=== PATIENT | male | born 1995 | race Caucasian/White ===

== ENCOUNTER 2020-01-23 22:22 | Emergency (ER) | payer SELFPAY ==
[~2020-01-23] VITALS: Ht 180.3 cm; Wt 113.6 kg
[2020-01-23 22:26] VITALS: Ht 180.3 cm; Wt 113.6 kg
[2020-01-23 23:02] LABS: BASOPHILS 0.4 % (0-2); EOSINOPHILS 0.2 % (0-7); HEMATOCRIT 46.7 % (42.0-54.0); HEMOGLOBIN 15.8 g/dL (13.5-17.5); IMMATURE GRANULOCYTES 0.2 % (0-5); LYMPHOCYTES 26.9 % (15-50); MCH 31.5 pg (26.0-34.0); MCHC 33.8 g/dL (31.0-37.0); MEAN PLATELET VOLUME 10.2 fL (7.4-10.4); MONOCYTES 8.6 % (2-11); NEUTROPHILS 63.7 % (40-80); PLATELET COUNT 278 10x3/uL (130-400); RBC 5.02 10x6/uL (4.20-6.10); RDW 12.1 % (11.5-14.5); WBC 11.3 10x3/uL (4.8-10.8)
[2020-01-23 23:08] LABS: BILIRUBIN NEGATIVE (NEGATIVE); GLUCOSE NEGATIVE (NEGATIVE); KETONE MODERATE mg/dL (NEGATIVE); NITRITE NEGATIVE (NEGATIVE); UROBILINOGEN NORMAL (NORMAL)
[2020-01-23 23:15] LABS: CALC OSMOLALITY 274 mosm/kg (275-300); CALCIUM 9.2 mg/dL (8.5-10.1); CARBON DIOXIDE 30.3 mmol/L (21.0-32.0); CHLORIDE - SERUM 102 mmol/L (98-107); CREATININE - SERUM 1.2 mg/dL (0.6-1.3); GLUCOSE 91 mg/dL (74-106); SODIUM 138 mmol/L (136-145); UREA NITROGEN 10 mg/dL (7-18); eGFR NON AFRICAN AMERICAN 80 mL/min (90-120)
[2020-01-23 23:23] LABS: ALBUMIN 4.7 g/dL (3.4-5.0); ALKALINE PHOSPHATASE 52 U/L (30-120); ALT (SGPT) 27 U/L (10-68); AMYLASE - SERUM 36 U/L (25-115); BILIRUBIN - TOTAL 0.79 mg/dL (0.2-1.3); LIPASE 74 U/L (73-393); PROTEIN - SERUM 7.8 g/dL (6.4-8.2)
[2020-01-23 23:25] LABS: TROPONIN-I < 0.017 ng/mL (0.000-0.060)
[2020-01-24] MEDS ORDERED: ZOFRAN ODT4 MG/UDTAB PO (00:12)
[2020-01-24 00:34] VITALS: BP 120/74
== END 2020-01-24 00:35 | disposition home or self-care (01) ==
LOC: D.ER 22:22
PROVIDERS: Family Medicine
DX: K52.9 Noninfective gastroenteritis and colitis, unspecified (principal); R11.2 Nausea with vomiting, unspecified; R53.83 Other fatigue; R10.13 Epigastric pain